=== PATIENT | female | born 1995 | race African-American/Black ===

== ENCOUNTER 2020-04-18 18:37 | Emergency (ER) | payer SELFPAY ==
[~2020-04-18] VITALS: Ht 157.5 cm; Wt 45.4 kg
[2020-04-18 18:42] VITALS: BP 123/67
--- NOTE | 2020-04-18 18:46 | NUR ---
Patient ambulated to bed 6.
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
--- NOTE | 2020-04-18 19:07 | NUR ---
gave report to rn awilda pt comfortable in bed with stable vs.
--- NOTE | 2020-04-18 19:42 | NUR ---
Dr. Real at bedside evaluating pt.
[2020-04-18] MEDS ORDERED: ACETAMINOPHEN EXTRA STRENGTH 500 MG TAB PO ONE (19:45)
[2020-04-18] MEDS ORDERED: KETOROLAC 15 MG/ML VIAL IM ONE (19:45)
--- NOTE | 2020-04-18 20:00 | NUR ---
xray at bedside.
[2020-04-18 20:41] VITALS: BP 120/78
--- NOTE | 2020-04-18 22:03 | NUR ---
Patient discharged with v/s stable. Written and verbal after care instructions given and explained. Patient alert, oriented and verbalized understanding of instructions. Ambulatory with steady gait. All questions addressed prior to discharge. ID band removed. Patient advised to follow up with PMD. Rx of norco, naprosyn, tylenol given. Patient educated on indication of medication including possible reaction and side effects. Opportunity to ask questions provided and answered.
== END 2020-04-18 22:03 | disposition home or self-care (01) ==
LOC: MED 18:37
DX: H57.12 Ocular pain, left eye (principal); R07.81 Pleurodynia; Y08.89XA Assault by other specified means, initial encounter; Y93.89 Activity, other specified; Y92.89 Other specified places as the place of occurrence of the external cause; Y99.8 Other external cause status
CPT/HCPCS: 70450; 70486; 71045; 81025; 96372; 99285; J1885; Q0092

== ENCOUNTER 2020-11-14 03:30 | Emergency (ER) | payer BC ==
[~2020-11-14] VITALS: Ht 152.4 cm; Wt 45.4 kg
[2020-11-14 03:40] VITALS: BP 111/69
--- NOTE | 2020-11-14 03:40 | NUR ---
TO BED AMBULATORY
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
--- NOTE | 2020-11-14 04:03 | NUR ---
ERMD AT BEDSIDE EVALUATING PATIENT.
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
--- NOTE | 2020-11-14 04:21 | NUR ---
PATIENT TAKEN TO CT VIA W/C.
--- NOTE | 2020-11-14 04:36 | NUR ---
PATIENT RETURNED FROM CT VIA W/C.
--- NOTE | 2020-11-14 04:44 | NUR ---
JACQUELINE OCONNOR AT BEDSIDE TO PERFORM SUTURE PROCEDURE.
[2020-11-14] MEDS ORDERED: BACITRACIN OINT 500 UNITS/GM PKT TP ONE (05:12)
--- NOTE | 2020-11-14 05:14 | NUR ---
PT WOUNDS COVERED WITH BANDAIDS AFTER BACITRACIN APPLIED.
[2020-11-14] MEDS ORDERED: ACET-8386 PO ×2 (05:23→13:28)
[2020-11-14] MEDS: LIDOCAINE MPF 1% 10 MG/ML VIAL INJ ONE (06:26)
[2020-11-14] MEDS: BACITRACIN OINT 500 UNITS/GM PKT TP ONE (06:27)
[2020-11-14 06:32] VITALS: BP 111/69
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
[2020-11-14] MEDS ORDERED: BACI1PAC6 TP (13:28)
== END 2020-11-14 06:32 | disposition home or self-care (01) ==
LOC: MED 03:30
DX: S01.112A Laceration without foreign body of left eyelid and periocular area, initial encounter (principal); S01.81XA Laceration without foreign body of other part of head, initial encounter; S09.8XXA Other specified injuries of head, initial encounter; Y04.0XXA Assault by unarmed brawl or fight, initial encounter; Y93.89 Activity, other specified; Y92.89 Other specified places as the place of occurrence of the external cause; Y99.8 Other external cause status
CPT/HCPCS: 12011; 70450; 70486; 99285; J2001

== ENCOUNTER 2020-11-14 12:12 | Emergency (ER) | payer BC ==
[~2020-11-14] VITALS: Ht 152.4 cm; Wt 45.4 kg
[~2020-11-14 12:12] MED LIST: ACET-8386 PO
[2020-11-14 12:20] VITALS: BP 102/46
--- NOTE | 2020-11-14 12:47 | NUR ---
Shagufta linda in [facility] - 11/14/20 at 1249 by MUMTAZ Patient ambulated to bed 11 with steady/even gait.
--- NOTE | 2020-11-14 12:49 | NUR ---
PT AMBULATED TO BED 11.
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
[2020-11-14] MEDS ORDERED: BACI1PAC6 TP (13:28)
[2020-11-14] MEDS ORDERED: ACET-8386 PO (13:28)
[2020-11-14 13:44] VITALS: BP 102/46
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
== END 2020-11-14 13:44 | disposition home or self-care (01) ==
LOC: MED 12:12
DX: S01.81XD Laceration without foreign body of other part of head, subsequent encounter (principal); Z48.00 Encounter for change or removal of nonsurgical wound dressing; Z79.899 Other long term (current) drug therapy; Z76.0 Encounter for issue of repeat prescription; X58.XXXA Exposure to other specified factors, initial encounter
CPT/HCPCS: 99281